=== PATIENT | female | born 1990 | race Caucasian/White ===

== ENCOUNTER 2019-11-02 22:58 | Emergency (ER) | payer MEDICAID, SELFPAY ==
[2019-11-02 22:58] VITALS: BP 119/78; PULSE 105; RESP 18; TEMP 36.4; O2SAT 99; BMI 29.2
--- NOTE | 2019-11-02 23:07 | RAD_ITS ---
STUDY: X-RAY - RIGHT ANKLE REASON FOR EXAM: Female, 29 years old. patient fell and rolled right ankle, medial bruising TECHNIQUE: 3 view(s) of the ankle. COMPARISON: None. FINDINGS: Normal visualized distal tibia and fibula. Normal medial and lateral malleoli. Normal tibiotalar articulation and ankle mortise. Normal visualized talus and calcaneus. The visualized subtalar, talonavicular, calcaneocuboid and tarsal articulations are normal. The soft tissue structures are unremarkable. RAD/Ankle min 3 Views IMPRESSION: Normal x-ray examination of the ankle. Electronically Signed: Moises Stovall MD at 23:19 EDT , Service support ,
--- NOTE | 2019-11-02 23:09 | ED.DCSUM_ITS ---
History of Present Illness Chief Complaint: Lower Extremity Injury Informant: Patient Onset: Yesterday Context: Gradual Onset Timing: Continuous Current Severity: Moderate Maximum Severity: Moderate Narrative: The patient is a 29-year-old female that presents to the emergency department for right ankle injury. Yesterday, she was coming down stairs carrying her 9-year-old son. She missed the last step suffered an inversion injury of the ankle. She states she went to [place]. She states she had x-rays which were negative. She was diagnosed with a sprain. She states throughout the day, she is had worsening bruising and pain. She presented here because she wanted a second opinion. She does have history of epilepsy, but has not had a seizure in some time. She is otherwise been in her normal state of health. Prior similar symptoms: Yes Recent Illness/Hospitalization: No Past Medical History - Allergies and Home Meds Allergies/Adverse Reactions: Allergies tioconazole [From Monistat 1 (tioconazole)] Allergy (Verified 11/02/19 23:01) Rash Penicillins Adverse Reaction (Severe, Verified 11/02/19 23:01) Anaphylaxis Primary Care Physician: Ofe Ramesh [employer], [employer] [Primary Care Provider] - Prior records reviewed: Yes Past Medical History: - - Seizure disorder Surgical History: noncontributory Smoking Status: Current every day smoker Review of Systems General: Denies: Chills, Fever, Sweats Eyes: Denies: Visual changes - bilaterally, Diplopia ENT: Denies: Rhinorrhea, Sore throat Cardiovascular: Denies: Chest pain, Palpitations Respiratory: Denies: Dyspnea, Cough, Dyspnea on exertion Gastrointestinal: Denies: Abdominal pain, Nausea, Vomiting, Diarrhea, Melena, Hematochezia Genitourinary: Denies: Dysuria, Hematuria, Frequency Musculoskeletal: Denies: Back pain, Extremity Pain Skin: Denies: Rash, Wounds Neurological: Denies: Headache, Weakness, Numbness Physical Exam Vital Signs/Narrative: Vital Signs Temp Pulse Resp BP Pulse Ox 11/02/19 22:58 97.6 F L 105 H 18 119/78 99 Inital Vital Signs reviewed: Yes General: Well nourished, Well developed, No Acute Distress Head: Normocephalic, Atraumatic Eyes: Perrl, EOMI ENT: Moist mucous membranes, No rhinorrhea Neck: Supple, Nontender Cardiovascular: Regular rate, Regular rhythm, No murmurs Respiratory: No distress, CTA bilaterally, Chest nontender Abdomen: Soft, Nontender, Nondistended, Normal bowel sounds Back: Nontender, Normal Inspection Extremities: No edema, Tenderness - Tender over the medial malleolus. No pain at the proximal fibula. No pain at the head of the fifth metatarsal. No gross laxity. Anthony negative. Skin: Normal color, No rash Neurological: Alert, Oriented x3, Cranial nerves II-XII grossly intact, Normal Strength, Normal Sensation Psychological: Normal affect, Normal Mood Diagnostic/Tx/Re-eval Clinical Impression(s) from Imaging Studies Ankle X-Ray 11/02/19 23:07 IMPRESSION: Normal x-ray examination of the ankle. Electronically Signed: Moises Stovall MD at 23:19 EDT , Service support , - Medical Decision Making The patient presents with persistent ankle pain. She states that she was seen yesterday and had x-rays which are negative. X-rays were repeated. She does have bruising in the medial aspect of the foot. X-rays were read as negative. However there does appear to be a small irregularity along the medial malleolus. I think she may have a very small avulsion. I am going to treat the patient with a boot orthosis. She will continue crutches and anti-inflammatories. She will be given outpatient orthopedic follow-up. Impression 1. Avulsion fracture medial malleolus ED Disposition - Plan for ED Patient: Instructions: ED Sprain Ankle Referrals: Efrain Andrews DPM [STAFF PHYSICIAN] -
[2019-11-02] MEDS: Ibuprofen 600 MG Tablet PO (23:35)
== END 2019-11-02 23:39 | disposition home or self-care (01) ==
LOC: ED 23:22
PROVIDERS: Emergency Provider Emergency Medicine; PCP Nurse Practitioner Family
DX: S82.51XG Displaced fracture of medial malleolus of right tibia, subsequent encounter for closed fracture with delayed healing (principal); W10.9XXD Fall (on) (from) unspecified stairs and steps, subsequent encounter; G40.909 Epilepsy, unspecified, not intractable, without status epilepticus; F17.200 Nicotine dependence, unspecified, uncomplicated; Z88.0 Allergy status to penicillin
CPT/HCPCS: 73610; 99283

== ENCOUNTER 2022-08-27 13:41 | Emergency (ER) | payer MEDICAID, SELFPAY ==
[2022-08-27 13:43] VITALS: BP 105/79; PULSE 96; TEMP 36.1; O2SAT 100; BMI 25.7
--- NOTE | 2022-08-27 13:54 | EDS_ITS ---
HPI HPI - GI History of Present Illness Chief Complaint: Nausea/Vomiting Informant: patient Narrative Narrative: Since the she has had nonbloody nonbilious emesis for the past 3 days and cannot keep anything down. She has had subjective fevers. Occasional lower abdominal cramping, but not much and none today. Her significant other was having the same symptoms for 2 or 3 days and now he is better. She states she is about 12-16 weeks, she has not had an ultrasound yet. Has not been vomiting throughout early until this started. She denies any vaginal bleeding or discharge. No diarrhea. PFSH PFSH Medical History no medical history no medical history Home Medications ibuprofen 600 mg tablet 600 mg PO Q6H PRN PRN Mild/Moderate Pain ##40 06/24/13 [Rx Last Taken Unknown] lamotrigine 100 mg tablet 100 mg PO DAILY 11/02/19 [History Last Taken Unknown] Allergy/AdvReac Type Severity Reaction Status Date / Time tioconazole Allergy Rash Verified 08/27/22 13:43 [From Monistat 1 (tioconazole)] Penicillins AdvReac Severe Anaphylaxis Verified 08/27/22 13:43 Surgical History (Updated 08/27/22 @ 13:[address] Molina Doran MD) History of Social History Smoking Status: Never smoker ROS ROS ED Constitutional Constitutional ED: Reports chills, fever(s) and subjective Eyes Eyes: Denies change in vision or diplopia ENT ENT ED: Denies rhinorrhea or sore throat Cardiovascular Cardiovascular: Denies chest pain or palpitations Respiratory/Chest Respiratory/Chest: Denies cough or dyspnea Gastrointestinal Gastrointestinal: Reports abdominal pain, nausea and vomiting; Denies diarrhea Genitourinary Genitourinary ED: Denies dysuria or hematuria Musculoskeletal Musculoskeletal: Denies back pain or neck pain Integumentary Denies abscess or rash Neurologic Neurologic: Denies headache(s), paresthesias or weakness Psychiatric Psychiatric: Denies anxiety or suicidal thoughts EXAM Physical Exam Const Vital Signs: 08/27/22 13:43 Temperature 96.9 F L Temperature Source Temporal Pulse Rate 96 Blood Pressure 105/79 Blood Pressure Mean 87 Pulse Ox 100 Oxygen Delivery Method Room Air Positive well nourished and well developed General Appearance ED: well developed and NAD HEENT Reports moist mucous membranes normocephalic and atraumatic Eyes PERRL and EOMs intact bilaterally Neck full ROM and supple Resp normal respiratory effort and clear to auscultation bilaterally Cardio regular rate, regular rhythm and no murmurs Cardio Narrative: My tachycardic GI non-tender and non-distended Auscultation: normoactive bowel sounds Palpation: soft Back/Spine no CVA tenderness General Back: other FROM Extremity normal to inspection General Extremety ED: Negative for edema, pulses abnormal or tenderness General Extremity: Negative for edema or pulses abnormal Neuro oriented x3, CN's II-XII intact bilaterally and no sensory deficits noted Sensorium / Orientation: awake and alert Motor Exam: strength 5/5 throughout Skin no rashes or lesions noted and no wounds MDM MDM MDM Narrative Medical decision making narrative: Patient was given a liter of IV fluids along with Zofran which helped and she had no more vomiting. We obtained some basic labs, she is not dehydrated or prerenal. Everything else looks good. I did a bedside ultrasound to look at her . She states she has no idea when her last menstrual cycle was and she cannot even ballpark it. Looking at her uterus, she has an endometrial stripe with no gestational sac and no or evidence of anything. She has no pain to suggest an ectopic. Given this I discussed this with her and advised that we send a quantitative hCG. She was amenable. This is pending, but the patient states that she does not want to wait and she eloped prior to my being able to discuss anything with her such as vitamins, prescription for Zofran, and OB referral, all of which the nurse discussed with her before she left. Lab Data Attestation: I reviewed the patient's lab results. Labs: Laboratory Results - last 24 hr 08/27/22 14:07 WBC 5.8 RBC 4.88 Hgb 13.5 Hct 40.7 MCV 83.4 MCH 27.7 MCHC 33.2 RDW Std Deviation 38.8 RDW Coeff of Dickson 12.6 Plt Count 216 MPV 10.9 Immature Gran % (Auto) 0.300 Neut % (Auto) 71.8 H Lymph % (Auto) 22.3 Sumner % (Auto) 4.9 Eos % (Auto) 0.5 Baso % (Auto) 0.2 Absolute Neuts (auto) 4.1 Absolute Lymphs (auto) 1.28 Nucleated RBC % 0 Sodium 138 Potassium 4.0 Chloride 108 H Carbon Dioxide 27.0 Anion Gap 3 L BUN 8 Creatinine 0.86 Estim Creat Clear Calc 71.52 Est GFR (MDRD) Af Amer 98 Est GFR (MDRD) Non-Af 81 BUN/Creatinine Ratio 9.3 L Glucose 109 H Calcium 8.8 Discharge Plan Triage Chief Complaint: Nausea/Vomiting ED Provider: Molina Doran Dx/Rx/DC Orders Clinical Impression: Viral gastritis, Early stage of Prescriptions: No Action ibuprofen 600 MG tablet 600 mg PO Q6H PRN PRN (Reason: Mild/Moderate Pain) Qty: 40 1RF lamotrigine 100 MG tablet 100 mg PO DAILY Primary Care Provider: Ofe Ramesh NP Referrals: Ofe Ramesh NP, [employer]RECTIONAL MEDICINE PHYSICIAN-C [Primary Care Provider] - Disposition Disposition: Elopement
[2022-08-27] MEDS: Ondansetron 4 MG/2 ML Vial IV (14:10)
[2022-08-27] MEDS: 0.9% Normal Saline 1,000 ML 999 ML IV (14:10)
[2022-08-27 14:12] LABS: Absolute Lymphocyte Count 1.28 X10^3/uL (0.83-4.51); Absolute Neutrophil Count 4.1 X10^3/uL (2.0-7.7); Basophil# 0.01 X10^3/uL; Basophil% 0.2 % (0-1); Eosinophil# 0.03 X10^3/uL; Eosinophils% 0.5 % (0-5); Hematocrit 40.7 % (37-47); Hemoglobin 13.5 g/dL (12.0-15.0); Lymphocyte # 1.28 X10^3/ul (0.83-4.51); Lymphocyte % 22.3 % (19-41); Mean Corp Hgb Conc 33.2 g/dL (32-36); Mean Corpuscular Hgb 27.7 pg (27.0-32.0); Mean Corpuscular Volume 83.4 fL (81-99); Mean Platelet Vol. 10.9 fl (6.2-12.0); Monocyte# 0.28 X10^3/uL; Monocyte% 4.9 % (0-10); NRBC Flagged by Analyzer 0 % (0-5); Neutrophil # 4.13 X10^3/uL (2.7-7.7); Neutrophil % 71.8 % (47-70); Platelet Count 216 K/mm3 (150-450); RBC Distribution Width CV 12.6 % (11.6-14.6); RBC Distribution Width SD 38.8 fl (35.1-43.9); Red Blood Count 4.88 M/mm3 (4.2-5.4); White Blood Count 5.8 K/mm3 (4.4-11.0)
[2022-08-27 14:34] LABS: Anion Gap 3 (5-15); BUN 8 mg/dL (7-18); BUN/Creat Ratio 9.3 RATIO (10-20); Calcium,Total 8.8 mg/dL (8.5-10.1); Chloride 108 mmol/L (98-107); Creatinine, Serum 0.86 mg/dL (0.55-1.02); EST Glomerular Filtration Rate 81 mL/min (>60); Est Glom Filt Rate - Afr Amer 98 mL/min (>60); Estimated Creatinine Clearance 71.52 ml/min; Glucose 109 mg/dL (74-106); Sodium Level 138 mmol/L (136-145)
--- NOTE | 2022-08-27 16:03 | ED.RN ---
pt SO came out of room stating pt needed IV out and she was leaving. This nurse into talk to pt about leaving. pt stating I am tired of being here and I am leaving to go eat some food and walk home. this nurse explained the importance of pending lab work, f/u with OB and that there was some snacks that I could provide. pt still requesting to leave. IV removed and Dr. Doran updated.
[2022-08-27 16:07] VITALS: PULSE 64; RESP 17; O2SAT 98
[2022-08-27 16:16] LABS: hCG Titer Quant., Serum < 1 mIU/mL (1-3)
== END 2022-08-27 16:09 | disposition left against medical advice (07) ==
PROVIDERS: Emergency Provider Emergency Medicine; PCP Nurse Practitioner Family; Visit Provider Emergency Medicine
DX: O99.611 Diseases of the digestive system complicating pregnancy, first trimester (principal); K29.70 Gastritis, unspecified, without bleeding; Z3A.00 Weeks of gestation of pregnancy not specified
CPT/HCPCS: 80048; 84702; 85025; 96361; 96374; 99283; J7030; A4216; J2405

== ENCOUNTER 2023-02-15 02:10 | Emergency (ER) | payer MEDICAID, SELFPAY ==
[2023-02-15 02:10] VITALS: BP 118/83; PULSE 94; RESP 14; TEMP 37.1; O2SAT 99
[2023-02-15 02:12] VITALS: BMI 26.4
--- NOTE | 2023-02-15 02:24 | ED.VIS.DENTA ---
HPI History of Present Illness Chief Complaint: Dental Informant: patient Narrative Narrative: Patient presenting with 2 to 3 days of rhinorrhea, cough, sore throat/odynophagia. This evening her right maxillary teeth/face started hurting and the pain is gotten severe and radiating into her right ear. PFSH PFSH Medical History no medical history no medical history Home Medications ibuprofen 600 mg tablet 600 mg PO Q6H PRN PRN Mild/Moderate Pain ##40 06/24/13 [Rx Last Taken Unknown] lamotrigine 100 mg tablet 100 mg PO DAILY 11/02/19 [History Last Taken Unknown] clindamycin HCl 150 mg capsule 300 mg (2 x 150 mg) PO 4X/DAY #80 CAPSULES 02/15/23 [Rx Last Taken Unknown] Allergy/AdvReac Type Severity Reaction Status Date / Time tioconazole Allergy Rash Verified 02/15/23 02:13 [From Monistat 1 (tioconazole)] Penicillins AdvReac Severe Anaphylaxis Verified 02/15/23 02:13 Surgical History (Updated 08/27/22 @ 13:[address] Molina Droan MD) History of Social History Smoking Status: Never smoker ROS ROS ED Constitutional Constitutional ED: Denies chills or fever(s) Eyes Eyes: Denies change in vision or double vision ENT ENT ED: Reports dental pain, ear pain right, rhinorrhea and sore throat; Denies sinus pain Cardiovascular Cardiovascular: Denies chest pain or palpitations Respiratory/Chest Respiratory/Chest: Reports cough; Denies dyspnea Gastrointestinal Gastrointestinal: Denies abdominal pain, diarrhea, nausea or vomiting Genitourinary Genitourinary ED: Denies dysuria or hematuria Musculoskeletal Musculoskeletal: Denies myalgias or neck pain Integumentary Denies abscess or rash Neurologic Neurologic: Denies headache(s), paresthesias or weakness Psychiatric Psychiatric: Denies depression or suicidal thoughts Endocrine Endocrinology: Denies polydipsia or polyuria EXAM Physical Exam Const Vital Signs: 02/15/23 02:10 Temperature 98.7 F Temperature Source Oral Pulse Rate 94 Respiratory Rate 14 Blood Pressure 118/83 H Blood Pressure Mean 94 Pulse Ox 99 Oxygen Delivery Method Room Air Positive well nourished and well developed General Appearance ED: well developed and NAD HEENT Reports TM's clear and moist mucous membranes HEENT Narrative: Soft palatal petechiae. No trismus. No posterior oropharyngeal or tonsillar exudates. Multiple carried dentition right maxillary and mandibular teeth, maxillary is worse and multifocal. Only one of the teeth here, tooth #2, is tender. It is a less carried. There is no associated gingivitis, bleeding, necrosis, or palpable abscess. No external asymmetry. normocephalic and atraumatic Face and Sinus: sinuses nontender Tympanic Membrane ED: Yes TM's clear Throat: posterior oropharynx normal Eyes PERRL and EOMs intact bilaterally Neck no lymphadenopathy and supple Resp normal respiratory effort and no retractions Neuro oriented x3 and CN's II-XII intact bilaterally Sensorium / Orientation: alert Gait (Neuro): normal gait Motor Exam: strength 5/5 throughout Psych mental status grossly normal and thought process normal Skin no rashes or lesions noted and no wounds Lesions: no lesions Rashes: no rashes MDM MDM MDM Narrative Medical decision making narrative: Given the patient's dental tenderness and pain and signs of decay, will place her on antibiotics. She is allergic to amoxicillin, so we will place her on clindamycin and given instructions regarding prevention of antibiotic associated diarrhea and C. difficile. She has some palatal petechiae, this could be strep, which will be covered by the clindamycin, no testing is needed, it also is very likely that it could be viral especially with the symptoms she is having as I discussed with her. She is given tramadol, naproxen here tonight, supportive care along with a prescription for clindamycin indicated going forward and follow-up with a dentist. Discharge Plan Triage Chief Complaint: Dental ED Provider: Molina Doran Dx/Rx/DC Orders Clinical Impression: Viral URI with cough, Dental decay, Odontalgia Instructions: ED Dental Cavity Prescriptions: New clindamycin HCl 150 mg capsule 300 mg PO 4X/DAY Qty: 80 0RF No Action ibuprofen 600 MG tablet 600 mg PO Q6H PRN PRN (Reason: Mild/Moderate Pain) Qty: 40 1RF lamotrigine 100 MG tablet 100 mg PO DAILY Primary Care Provider: Ofe Ramesh NP Referrals: Ofe Ramesh NP, [employer] AMBASSADOR-C [Primary Care Provider] - Dentist,Your [STAFF PHYSICIAN] - 1 Week Disposition Disposition: Home, Self Care
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
[2023-02-15] MEDS: Naproxen 250 MG Tablet 500 MG PO (02:39)
[2023-02-15] MEDS: Clindamycin HCl 150 MG Capsule 300 MG PO (02:39)
[2023-02-15] MEDS: traMADol 50 MG Tablet PO (02:40)
== END 2023-02-15 02:46 | disposition home or self-care (01) ==
LOC: ED 02:33
PROVIDERS: Emergency Provider Emergency Medicine; PCP Nurse Practitioner Family; Visit Provider Emergency Medicine
DX: J06.9 Acute upper respiratory infection, unspecified (principal); K08.89 Other specified disorders of teeth and supporting structures; K02.9 Dental caries, unspecified; R05.9 Cough, unspecified
CPT/HCPCS: 99283

== ENCOUNTER 2023-03-25 19:22 | Emergency (ER) | payer MEDICAID, SELFPAY ==
[2023-03-25 19:23] VITALS: BP 98/72; PULSE 96; RESP 16; TEMP 36.4; O2SAT 100; BMI 25.4
--- NOTE | 2023-03-25 19:32 | EX.ED.DYSGE1 ---
HPI History of Present Illness Chief Complaint: Cold Sx Detail of Chief Complaint: Flulike symptoms for the past several days. Significant others mother who Informant: patient and spouse/S.O. Onset/Context/Timing Onset: Days Context: Sudden Onset Timing: Continuous and Waxes and wanes Quality: Upper respiratory tract symptoms with nausea and vomiting Location: Respiratory Current Severity: Moderate Maximum Severity: Severe Worsened by: Nothing Relieved by: Nothing Associated Symptoms Associated Symptoms: Nausea, vomiting, thirst, dry mouth orthostatic Narrative Narrative: Patient is a 33-year-old female whose last normal menstrual period was less than 2 weeks ago. She is on control. She presents because of headache, rhinorrhea, congestion, sore throat, nonproductive cough with nausea and vomiting. She does endorse lightheadedness with standing. She does endorse headache. She denies double vision but does endorse blurred vision. She denies photophobia. She denies neck stiffness. She denies rash. She does endorse decreased urine output. She has not noted a rash. She does complain of myalgias arthralgias. Significant other made comment that she is paler than normal in appearance Prior similar symptoms: No Recent Illness/Hospitalization: No PFSH PFSH Medical History no medical history no medical history Home Medications ibuprofen 600 mg tablet 600 mg PO Q6H PRN PRN Mild/Moderate Pain ##40 06/24/13 [Rx Last Taken Unknown] lamotrigine 100 mg tablet 100 mg PO DAILY 11/02/19 [History Last Taken Unknown] clindamycin HCl 150 mg capsule 300 mg (2 x 150 mg) PO 4X/DAY #80 CAPSULES 02/15/23 [Rx Last Taken Unknown] ondansetron 4 mg disintegrating tablet 4 mg PO Q8H PRN PRN Nausea #10 tabs 03/25/23 [Rx Last Taken Unknown] Allergy/AdvReac Type Severity Reaction Status Date / Time tioconazole Allergy Rash Verified 03/25/23 19:25 [From Monistat 1 (tioconazole)] Penicillins AdvReac Severe Anaphylaxis Verified 03/25/23 19:25 Surgical History History of Social History (Updated 03/25/23 @ 19:[address] Callum Muro MD) household members: significant other and family Smoking Status: Current every day smoker tobacco type: cigarettes substance use type: does not use ROS ROS ED Constitutional Constitutional ED: Reports chills, fever(s) and subjective; Denies sweats or weight loss Eyes Eyes: Reports blurry vision bilateral; Denies change in vision or diplopia ENT ENT ED: Reports rhinorrhea and sore throat; Denies ear pain Cardiovascular Cardiovascular: Denies chest pain, orthopnea, palpitations or paroxysmal nocturnal dyspnea Respiratory/Chest Respiratory/Chest: Reports cough, dyspnea and dyspnea on exertion; Denies orthopnea, paroxysmal nocturnal dyspnea or sputum Gastrointestinal Gastrointestinal: Reports nausea and vomiting; Denies abdominal pain, diarrhea or melena Genitourinary Genitourinary ED: Reports LMP (females 10-50) Details: Comment: (Less than 2 weeks ago) and other Details: Decreased urine output ; Denies dysuria, hematuria or urinary frequency Musculoskeletal Musculoskeletal: Reports arthralgias and myalgias Integumentary Denies rash Neurologic Neurologic: Reports headache(s) and weakness Hematologic/Lymphatic Hematologic/Lymphatic: Reports systems reviewed and no addt'l complaints, except as documented EXAM Physical Exam Const Vital Signs: 03/25/23 19:23 03/25/23 19:51 03/25/23 20:27 Temperature 97.6 F L 98.2 F Temperature Source Temporal Pulse Rate 96 80 Respiratory Rate 16 14 Respiratory Pattern Normal Blood Pressure 98/72 93/68 Blood Pressure Mean 80 76 Pulse Ox 100 100 Oxygen Delivery Method Room Air Positive well nourished and well developed Constitutional Narrative: Patient appears ill and pale. General Appearance ED: well developed and pallor HEENT Reports dry mucous membranes HEENT Narrative: Head is atraumatic no cephalic. Ears normal. TMs normal. Nares patent with slight discharge. Posterior pharynx out erythema or exudate. Mouth ED: Yes dry mucous membranes Mouth: dry mucous membranes Eyes PERRL and EOMs intact bilaterally General Eye ED: Negative for pale conjunctiva or scleral icterus Neck no lymphadenopathy, supple and no JVD Neck Narrative: Trachea is midline. There is no dysphonia. There is no stridor. Resp normal respiratory effort and clear to auscultation bilaterally Cardio regular rate, regular rhythm, S1 normal heart sound, S2 normal heart sound and no murmurs GI normal to inspection, nondistended, normoactive bowel sounds, non-tender, non-distended and no masses; Negative for hepatosplenomegaly Back/Spine no CVA tenderness Extremity normal to inspection Extremity Narrative: There is no clubbing or acrocyanosis. General Extremety ED: Negative for edema or tenderness General Extremity: Negative for edema Neuro oriented x3 and CN's II-XII intact bilaterally Neuro Narrative: Patient is awake but not alert. Gait was observed and normal. Psych Mood & Affect: depressed Skin no rashes or lesions noted, no wounds and No skin turgor normal General Skin Exam: pallor; Negative for jaundice MDM MDM MDM Narrative Medical decision making narrative: Since she resides in a house where a person was recent diagnosed with influenza B suspect patient has influenza B. Clinically she is dehydrated. 1 L of normal saline was ordered. Influenza test was not obtained since this would not change the course of her treatment or therapy. Because of the amount of vomiting with decreased p.o. intake orthostatic symptoms decreased urine output will obtain BMP to assess renal function electrolytes. She was treated with Zofran for her nausea and vomiting. Review of prior records indicate patient is been here for dental pain, fracture, and viral-like symptoms. History & Record Review Additional record(s) reviewed:: Prior ED visit and Prior labs Lab Data Attestation: I reviewed the patient's lab results. Lab results narrative: Mild hypokalemia. BUN/creatinine ratio is slightly elevated. Creatinine is normal with a normal GFR. Labs: Laboratory Results - last 24 hr 03/25/23 19:50 Sodium 137 Potassium 3.4 L Chloride 107 Carbon Dioxide 24.0 Anion Gap 6 BUN 17 Creatinine 0.84 Estim Creat Clear Calc 77.24 Est GFR (MDRD) Af Amer 101 Est GFR (MDRD) Non-Af 83 BUN/Creatinine Ratio 20.2 H Glucose 132 H Calcium 9.0 Treatment and Re-Evaluation :: Patient was reassessed at 08. She has had no further vomiting. Her nausea has improved markedly. She no longer appears pale. She states she feels better. She has no urge to urinate. Second liter of normal saline was ordered. Patient was reassessed at 2116. Patient does have urge to urinate. She has received 600 cc of her second liter of saline. Plan is to discharge once the second liter has infused. Discharge Plan Triage Chief Complaint: Cold Sx ED Provider: Muro,Callum Dx/Rx/DC Orders Clinical Impression: Acute dehydration, Type B influenza, Nausea & vomiting Instructions: ED Influenza (Adult), ED Vomiting (Adult) Prescriptions: New ondansetron [ondansetron] 4 mg tablet,disintegrating 4 mg PO Q8H PRN PRN (Reason: Nausea) Qty: 10 0RF No Action ibuprofen 600 MG tablet 600 mg PO Q6H PRN PRN (Reason: Mild/Moderate Pain) Qty: 40 1RF lamotrigine 100 MG tablet 100 mg PO DAILY clindamycin HCl 150 mg capsule 300 mg PO 4X/DAY Qty: 80 0RF Primary Care Provider: Ofe Ramesh NP Referrals: Ofe Ramesh NP, CERTIFIED FRAUD EXAMINER-C [Primary Care Provider] - 3-5 Days if not improving Disposition Disposition: Home, Self Care
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
[2023-03-25] MEDS: 0.9% Normal Saline (1000mL) 1,000 ML 1000 ML IV ×2 (19:49→20:53)
[2023-03-25] MEDS: Ondansetron 4 MG/2 ML Vial IV (19:49)
[2023-03-25 20:12] LABS: Anion Gap 6 (5-15); BUN 17 mg/dL (7-18); BUN/Creat Ratio 20.2 RATIO (10-20); Chloride 107 mmol/L (98-107); Creatinine, Serum 0.84 mg/dL (0.55-1.02); EST Glomerular Filtration Rate 83 mL/min (>60); Est Glom Filt Rate - Afr Amer 101 mL/min (>60); Estimated Creatinine Clearance 77.24 ml/min; Glucose 132 mg/dL (74-106); Potassium 3.4 mmol/L (3.5-5.1); Sodium Level 137 mmol/L (136-145)
[2023-03-25 20:27] VITALS: BP 93/68; PULSE 80; RESP 14; TEMP 36.8; O2SAT 100
== END 2023-03-25 21:37 | disposition home or self-care (01) ==
PROVIDERS: Emergency Provider Emergency Medicine; PCP Nurse Practitioner Family; Visit Provider Emergency Medicine
DX: E86.0 Dehydration (principal); J10.1 Influenza due to other identified influenza virus with other respiratory manifestations; F17.210 Nicotine dependence, cigarettes, uncomplicated; R11.2 Nausea with vomiting, unspecified
CPT/HCPCS: 80048; 96361; 96374; 99283; J7030; A4216; J2405